=== PATIENT | female | born 1930 | race Hispanic/Latino ===

== ENCOUNTER 2017-07-13 05:38 | Day surgery (SDC) | payer MEDICARE ==
[2017-07-13] MEDS ORDERED: NACL 0.9% 1000 ML 1,000 ML IV SCH (06:00)
[2017-07-13] MEDS ORDERED: PEPCID PO NR (06:00)
[2017-07-13] MEDS ORDERED: DILAUDID IV PRN (07:07)
--- NOTE | 2017-07-13 07:07 | Anesthesia Consultation ---
Anesthesia Consult and Med Hx Date of service: 07/13/17 - Airway Anesthetic Teeth Evaluation: Good ROM Head & Neck: Adequate Mental/Hyoid Distance: Adequate Mallampati Class: Class II Intubation Access Assessment: Probably Good - Pulmonary Exam CTA: Yes - Cardiac Exam Cardiac Exam: RRR - Pre-Operative Health Status ASA Pre-Surgery Classification: ASA3 Proposed Anesthetic Plan: General - Pulmonary Hx Smoking: No Hx Sleep Apnea: No (MARIELLE PRE SCREEN LOW RISK) - Cardiovascular System Hx Hypertension: Yes (X 5 YRS) - Endocrine Hx Non-Insulin Dependent Diabetes: Yes - Other Systems Hx Cancer: No
--- NOTE | 2017-07-13 07:07 | Anesthesia Day of Surgery ---
Anesthesia Day of Surgery - Day of Surgery Patient Examined: Yes Patient H&P Reviewed: Yes Patient is NPO: Yes Beta Blockers: Yes
[2017-07-13] MEDS ORDERED: DIPRIVAN 10 MG/ML IV ONE (07:12)
[2017-07-13] MEDS ORDERED: SUBLIMAZE ONE (07:12)
[2017-07-13] MEDS ORDERED: XYLOCAINE MPF 2% ONE (07:12)
[2017-07-13] MEDS ORDERED: NORCO 5/325 PO PRN (07:30)
[2017-07-13] MEDS ORDERED: LOPRESSOR PO ONE (08:00)
[2017-07-13] MEDS ORDERED: ANCEF/STERILE WATER 2 GM/20 ML IV NR (09:00)
[2017-07-13] MEDS ORDERED: ePHEDrine SULFATE ONE (09:16)
[2017-07-13] MEDS ORDERED: ZOFRAN ONE (09:16)
--- NOTE | 2017-07-13 09:58 | Short Stay Summary ---
Short Stay Documentation Date of service: 07/13/17 - History H&P: obtained from office - Allergies and Medications Current Medications: Allergies No Known Allergies Allergy (Verified 07/06/17 16:11) Home Medications Medication Instructions Recorded Confirmed Last Taken Type Aspirin [Lo-Dose Aspirin EC] 81 mg PO DAILY 07/06/17 07/13/17 07/06/17 08:00 History Cyanocobalamin (Vitamin B-12) 2,500 mcg PO DAILY 07/06/17 07/13/17 07/12/17 08: 00 History [Vitamin B12] Ergocalciferol (Vitamin D2) 2,000 unit PO DAILY 07/06/17 07/13/17 07/12/17 08: 00 History [Vitamin D2] Acetaminophen/Codeine [Tylenol 1 tab PO Q6H PRN 07/12/17 07/12/17 Unknown History /Codeine # 3 tab] AtorvaSTATin [Lipitor] 20 mg PO QHS 07/12/17 07/13/17 07/12/17 22:00 History Ketorolac [Toradol] 10 mg PO Q6H PRN 07/12/17 07/12/17 Unknown History Lisinopril [Prinivil] 10 mg PO DAILY 07/12/17 07/13/17 07/12/17 08:00 History Metoprolol [Lopressor] 25 mg PO BID 07/12/17 07/13/17 07/12/17 08:00 History Multivit-Min/Iron/Folic/Lutein 1 tab PO DAILY 07/12/17 07/13/17 07/12/17 08:00 History [Centrum Silver Women Tablet] Sitagliptin Phosphate [Januvia] 100 mg PO DAILY 07/12/17 07/13/17 07/12/17 08: 00 History Hydrochlorothiazide 12.5 mg PO DAILY 07/13/17 07/13/17 07/12/17 08:00 History [Hydrochlorothiazide] Active Medications Cefazolin Sodium (Ancef/Sterile Water 2 Gm/20 Ml) 2 gm IV PREOP NR Stop: 07/13/17 10:00 Famotidine (Pepcid) 20 mg PO PREOP NR Stop: 07/13/17 23:59 Last Admin: 07/13/17 06:36 Dose: 20 mg Hydromorphone HCl (Dilaudid) 0.25 mg IV Q10MIN PRN PRN Reason: Pain, Moderate (4-6) Stop: 07/13/17 12:00 Sodium Chloride (Nacl 0.9% 1000 Ml) 1,000 mls @ 75 mls/hr IV DIRECT ELAINE Last Admin: 07/13/17 06:37 Dose: 75 mls/hr - Physical exam General appearance: no acute distress - Brief post op/procedure progress note Date of procedure: 07/13/17 Pre-op diagnosis: EDYTA RENAL STONES x11; RT PROX URET/upj stone Post-op diagnosis: same Procedure: rt prox uret eswl Anesthesia: GETA Findings: g vis, mod spread dec density; possible another stone migrated to upj Surgeon: NAYANA THOMPSON Estimated blood loss: minimal Pathology: none Specimen disposition: to lab Condition: stable - Hospital course Hospital course: or pacu home - Disposition Condition at discharge: Good Disposition: DC-01 TO HOME OR SELFCARE Short Stay Discharge Plan Activity: advance as tolerated Follow up with: NAYANA THOMPSON MD [Staff Physician] - 7 Days
[2017-07-13 11:12] VITALS: BP 172/69
--- NOTE | 2017-07-13 19:21 | Post Anesthesia Evaluation ---
- Post Anesthesia Evaluation Patient Participated: Yes Airway Patent: Yes Stable Respiratory Function: Yes Nausea/Vomiting: No Temp > 96.8F: Yes Pain Manageable: Yes Adequeate Hydration: Yes Anesthesia Complications: No Block Receding Appropriately: Not Applicable Patient on Ventilator: No
--- NOTE | 2017-07-14 09:00 | Operative Report ---
PREOPERATIVE DIAGNOSES: Bilateral renal stones x 11, bilateral stents, right ureteropelvic junction proximal ureter 12 mm stone, right renal large stones. POSTOPERATIVE DIAGNOSES: Bilateral renal stones x 11, bilateral stents, right ureteropelvic junction proximal ureter 12 mm stone, right renal large stones. SURGEON: Ritesh Poe M.D. ANESTHESIA: General. SPECIMENS: None. ESTIMATED BLOOD LOSS: Minimal. COMPLICATIONS: None. PROCEDURE: Right ureteral ESWL. IMPLANTS: None. COMPLICATIONS: None. ESTIMATED BLOOD LOSS: Minimal. FINDINGS: Good visualization, mild decreased density at the end of the procedure, mild decrease in density. CLINICAL INDICATIONS: Counseled RCBA, antibiotics, SCDs. The patient with bilateral ureteral obstructing stones, left side treated, then right side, had right-sided stent placed, staged for future treatment. Will need multiple surgeries, multiple treatments just on this UPJ proximal ureteral stone. It appeared in angle that will be difficult to access with percutaneous nephrolithotomy. Planned possible percutaneous nephrolithotomy in the future for the lower pole large stones, but due to the angle, it appeared it may not be able to access this. Counseled on options, elected to proceed with the shock wave lithotripsy to see if we can fragment to at least clear the ureters. DESCRIPTION OF PROCEDURE: The patient was transferred to OR suite, anesthesia, dorsal lithotomy, prepped and draped in standard fashion. The stone was targeted with an F2. A total of 2800 shocks were delivered at a maximum of 5.0 kilovolts. 5.0 kilovolts was just done for a very short duration to see if we could get some additional fragmentation at the end of the procedure. At the end of the procedure, there was mild decrease in density and did seem to be spreading out. At this point, the patient was awakened and transferred to PACU in good and stable condition. This is a staged plan, expected multiple procedures including expected likely a 2-stage ESWL to fragment the stone and staged for future stent removal. JOB# [id number] ATS/NTS
== END 2017-07-13 11:13 | disposition home or self-care (01) ==
LOC: OR 05:38
PROVIDERS: ATTEND Urology
DX: N20.2 Calculus of kidney with calculus of ureter (principal); E11.9 Type 2 diabetes mellitus without complications; E78.5 Hyperlipidemia, unspecified; I10 Essential (primary) hypertension
CPT/HCPCS: 36415; 50590; 82962; 84132; J0690; J2405; J2704; J3010; J7030

== ENCOUNTER 2017-08-10 06:52 | Day surgery (SDC) | payer MEDICARE ==
--- NOTE | 2017-08-10 07:35 | Anesthesia Day of Surgery ---
Anesthesia Day of Surgery - Day of Surgery Patient Examined: Yes Patient H&P Reviewed: Yes Patient is NPO: Yes
--- NOTE | 2017-08-10 07:35 | Anesthesia Consultation ---
Anesthesia Consult and Med Hx Date of service: 08/10/17 - Airway Anesthetic Teeth Evaluation: Good ROM Head & Neck: Adequate Mental/Hyoid Distance: Adequate Mallampati Class: Class II Intubation Access Assessment: Good - Pulmonary Exam CTA: Yes - Cardiac Exam Cardiac Exam: RRR - Pre-Operative Health Status ASA Pre-Surgery Classification: ASA3 Proposed Anesthetic Plan: General - Pulmonary Hx Smoking: No Hx Sleep Apnea: No (MARIELLE PRE SCREEN LOW RISK) - Cardiovascular System Hx Hypertension: Yes (X 5 YRS) - Endocrine Hx Non-Insulin Dependent Diabetes: Yes - Other Systems Hx Cancer: No
[2017-08-10] MEDS ORDERED: NACL 0.9% 1000 ML 1,000 ML IV SCH (08:00)
[2017-08-10] MEDS ORDERED: ANCEF/STERILE WATER 2 GM/20 ML IV NR (09:00)
[2017-08-10] MEDS ORDERED: XYLOCAINE MPF 2% ONE (09:16)
[2017-08-10] MEDS ORDERED: ZOFRAN ONE (09:16)
[2017-08-10] MEDS ORDERED: DIPRIVAN 10 MG/ML IV ONE (09:16)
[2017-08-10] MEDS ORDERED: SUBLIMAZE ONE (09:32)
[2017-08-10] MEDS ORDERED: ePHEDrine SULFATE ONE (09:37)
--- NOTE | 2017-08-10 09:58 | Short Stay Summary ---
Short Stay Documentation Date of service: 08/10/17 - History H&P: obtained from office - Allergies and Medications Current Medications: Allergies No Known Allergies Allergy (Verified 07/06/17 16:11) Home Medications Medication Instructions Recorded Confirmed Last Taken Type Aspirin [Lo-Dose Aspirin EC] 81 mg PO DAILY 07/06/17 08/04/17 07/06/17 08:00 History Cyanocobalamin (Vitamin B-12) 2,500 mcg PO DAILY 07/06/17 08/04/17 07/12/17 08: 00 History [Vitamin B12] Ergocalciferol (Vitamin D2) 2,000 unit PO DAILY 07/06/17 08/04/17 07/12/17 08: 00 History [Vitamin D2] Acetaminophen/Codeine [Tylenol 1 tab PO Q6H PRN 07/12/17 08/04/17 Unknown History /Codeine # 3 tab] AtorvaSTATin [Lipitor] 20 mg PO QHS 07/12/17 08/04/17 07/12/17 22:00 History Ketorolac [Toradol] 10 mg PO Q6H PRN 07/12/17 08/04/17 Unknown History Lisinopril [Prinivil] 10 mg PO DAILY 07/12/17 08/04/17 07/12/17 08:00 History Metoprolol [Lopressor] 25 mg PO BID 07/12/17 08/04/17 07/12/17 08:00 History Multivit-Min/Iron/Folic/Lutein 1 tab PO DAILY 07/12/17 08/04/17 07/12/17 08:00 History [Centrum Silver Women Tablet] Sitagliptin Phosphate [Januvia] 100 mg PO DAILY 07/12/17 08/04/17 07/12/17 08: 00 History Hydrochlorothiazide 12.5 mg PO DAILY 07/13/17 08/04/17 07/12/17 08:00 History [Hydrochlorothiazide] Nitrofurantoin Brown/M-Cryst 100 mg PO Q12HR #14 capsule 07/13/17 08/04/17 Unknown Rx [Macrobid CAP] Oxybutynin [Ditropan] 5 mg PO Q8HR PRN #30 tablet 07/13/17 08/04/17 Unknown Rx Active Medications Cefazolin Sodium (Ancef/Sterile Water 2 Gm/20 Ml) 2 gm IV PREOP NR Stop: 08/10/17 21:00 Sodium Chloride (Nacl 0.9% 1000 Ml) 1,000 mls @ 100 mls/hr IV DIRECT ELAINE Last Admin: 08/10/17 08:40 Dose: 100 mls/hr - Brief post op/procedure progress note Date of procedure: 08/10/17 Pre-op diagnosis: rt renal stone Post-op diagnosis: same Procedure: rt eswl----stage Anesthesia: GETA Surgeon: EFREN TAVERAS Pathology: none Condition: stable - Hospital course Hospital course: norco & post op info on chart - Disposition Condition at discharge: Stable Disposition: DC-01 TO HOME OR SELFCARE Short Stay Discharge Plan Follow up with: BRYON BELL MD [Primary Care Provider] - 7 Days
--- NOTE | 2017-08-10 10:17 | Post Anesthesia Evaluation ---
- Post Anesthesia Evaluation Patient Participated: Yes Airway Patent: Yes Stable Respiratory Function: Yes Nausea/Vomiting: No Temp > 96.8F: Yes Pain Manageable: Yes Adequeate Hydration: Yes Anesthesia Complications: No
--- NOTE | 2017-08-10 10:38 | Operative Report ---
PREOPERATIVE DIAGNOSIS: Right renal calculi, status post stent placement. POSTOPERATIVE DIAGNOSIS: Right renal calculi, status post stent placement. PROCEDURE: Extracorporal shockwave lithotripsy, staged procedure. SURGEON: Lester Shankar MD ANESTHESIA: General. ANESTHESIOLOGIST: Dr. Nicanor Duenas. ESTIMATED BLOOD LOSS: Minimal. FLUIDS: Crystalloid. COMPLICATIONS: No complications. INDICATIONS: This patient is an 86-year-old female seen by Dr. Poe in the office with a long history of stones. She has had lithotripsy in the past. She presently has an indwelling stent. She presents now for lithotripsy. DESCRIPTION OF PROCEDURE: The patient was taken to the operative suite, placed in a supine position. After adequate general anesthesia, her stone was localized in 2 planes using fluoroscopy. Approximately an 8 mm stone next to the stent, there was some peripheral fragments noted as well. Extracorporal shock wave lithotripsy was administered with a maximum kV of 5 and 2500 shocks. Adequate fragmentation could be appreciated. She tolerated the procedure well. She was extubated and taken to recovery room in stable condition. She will go home. She has a prescription for [place]. JOB# [id number] C/NTS
[2017-08-10] MEDS ORDERED: NORCO 5/325 PO PRN (11:26)
[2017-08-10] MEDS ORDERED: NORCO 5/325 ONE (11:32)
[2017-08-10 18:41] VITALS: BP 146/56
== END 2017-08-10 12:10 | disposition home or self-care (01) ==
LOC: OR 06:52
PROVIDERS: ATTEND Urology
DX: N20.0 Calculus of kidney (principal); E11.9 Type 2 diabetes mellitus without complications; I10 Essential (primary) hypertension; E78.5 Hyperlipidemia, unspecified; Z96.0 Presence of urogenital implants; Z79.82 Long term (current) use of aspirin; Z79.899 Other long term (current) drug therapy; Z98.49 Cataract extraction status, unspecified eye
CPT/HCPCS: 50590; 82962; J0690; J2405; J2704; J3010; J7030

== ENCOUNTER 2017-09-14 05:53 | Day surgery (SDC) | payer MEDICARE ==
[2017-09-14] MEDS ORDERED: NACL BACTERIOSTATIC INFILTRATI ONE (06:36)
--- NOTE | 2017-09-14 07:16 | Anesthesia Consultation ---
Anesthesia Consult and Med Hx Date of service: 09/14/17 - Airway Anesthetic Teeth Evaluation: Good ROM Head & Neck: Adequate Mental/Hyoid Distance: Adequate Mallampati Class: Class II Intubation Access Assessment: Probably Good - Pulmonary Exam CTA: Yes - Cardiac Exam Cardiac Exam: RRR - Pre-Operative Health Status ASA Pre-Surgery Classification: ASA3 Proposed Anesthetic Plan: General - Pulmonary Hx Smoking: No Hx Sleep Apnea: No (MARIELLE PRE SCREEN LOW RISK) - Cardiovascular System Hx Hypertension: Yes (X 5 YRS) - Endocrine Hx Renal Disease: Yes (kidney stones) Hx Non-Insulin Dependent Diabetes: Yes - Other Systems Hx Cancer: No
--- NOTE | 2017-09-14 07:16 | Anesthesia Day of Surgery ---
Anesthesia Day of Surgery - Day of Surgery Patient Examined: Yes Patient H&P Reviewed: Yes Patient is NPO: Yes
[2017-09-14] MEDS ORDERED: PERCOCET 5/325 PO PRN (07:17)
[2017-09-14] MEDS ORDERED: ZOFRAN IV PRN (07:17)
[2017-09-14] MEDS: NACL 0.9% 1000 ML 1,000 ML IV SCH ×2 (07:22→14:19)
[2017-09-14] MEDS ORDERED: PEPCID IV NR (08:00)
[2017-09-14] MEDS ORDERED: DIPRIVAN 10 MG/ML IV ONE (08:27)
[2017-09-14] MEDS ORDERED: SUBLIMAZE ONE (08:27)
[2017-09-14] MEDS ORDERED: ANCEF/STERILE WATER 2 GM/20 ML IV NR (09:00)
[2017-09-14] MEDS ORDERED: NEO SYNEPHRINE/NS Syringe(OR USE) IV ONE (09:40)
[2017-09-14] MEDS ORDERED: XYLOCAINE MPF 2% ONE (09:40)
[2017-09-14] MEDS ORDERED: ROBINUL ONE (09:41)
[2017-09-14] MEDS ORDERED: ZOFRAN ONE (09:42)
[2017-09-14] MEDS ORDERED: OMNIPAQUE 300 MG/50 ML (CATH LAB) IV ONE (09:54)
[2017-09-14] MEDS ORDERED: WATER FOR IRRIG STERILE IR ONE (09:54)
--- NOTE | 2017-09-14 11:35 | Short Stay Summary ---
Short Stay Documentation Date of service: 09/14/17 - History H&P: obtained from office - Allergies and Medications Current Medications: Allergies No Known Allergies Allergy (Verified 07/06/17 16:11) Home Medications Medication Instructions Recorded Confirmed Last Taken Type Aspirin [Lo-Dose Aspirin EC] 81 mg PO DAILY 07/06/17 09/14/17 09/07/17 08:00 History Cyanocobalamin (Vitamin B-12) 2,500 mcg PO DAILY 07/06/17 09/14/17 09/13/17 08: 00 History [Vitamin B12] Ergocalciferol (Vitamin D2) 2,000 unit PO DAILY 07/06/17 09/14/17 09/13/17 08: 00 History [Vitamin D2] Acetaminophen/Codeine [Tylenol 1 tab PO Q6H PRN 07/12/17 09/11/17 08/03/17 History /Codeine # 3 tab] AtorvaSTATin [Lipitor] 20 mg PO QHS 07/12/17 09/14/17 09/13/17 19:00 History Ketorolac [Toradol] 10 mg PO Q6H PRN 07/12/17 09/11/17 08/03/17 History Lisinopril [Prinivil] 10 mg PO DAILY 07/12/17 09/14/17 09/13/17 08:00 History Metoprolol [Lopressor] 25 mg PO BID 07/12/17 09/11/17 08/09/17 History Multivit-Min/Iron/Folic/Lutein 1 tab PO DAILY 07/12/17 09/14/17 09/13/17 08:00 History [Centrum Silver Women Tablet] Sitagliptin Phosphate [Januvia] 100 mg PO DAILY 07/12/17 09/14/17 09/13/17 08: 00 History Hydrochlorothiazide 12.5 mg PO PRN 07/13/17 09/14/17 07/12/17 08:00 History [Hydrochlorothiazide] Oxybutynin [Ditropan] 5 mg PO Q8HR PRN #30 tablet 07/13/17 09/11/17 Unknown Rx Active Medications Cefazolin Sodium (Ancef/Sterile Water 2 Gm/20 Ml) 2 gm IV PREOP NR Stop: 09/14/17 23:59 Famotidine (Pepcid) 20 mg IV PREOP NR Stop: 09/14/17 23:59 Last Admin: 09/14/17 07:22 Dose: 20 mg Sodium Chloride (Nacl 0.9% 1000 Ml) 1,000 mls @ 100 mls/hr IV DIRECT ELAINE Last Admin: 09/14/17 07:22 Dose: 100 mls/hr Morphine Sulfate (Morphine) 2 mg IV Q10MIN PRN PRN Reason: Pain, Moderate (4-6) Stop: 09/14/17 18:00 Ondansetron HCl (Zofran) 4 mg IV ONCE PRN PRN Reason: Nausea And Vomiting Stop: 09/14/17 18:00 Oxycodone/Acetaminophen (Percocet 5/325) 1 tab PO ONCE PRN PRN Reason: Pain, Moderate (4-6) Stop: 09/14/17 18:00 - Brief post op/procedure progress note Date of procedure: 09/14/17 Pre-op diagnosis: RT renal / uret stone Post-op diagnosis: same Procedure: right uret eswl prox/mid right URS sbe, stent sbe x30 Anesthesia: GETA Findings: extensive frags ureter including too large to pass Surgeon: NAYANA THOMPSON Estimated blood loss: minimal Pathology: none Condition: stable - Hospital course Hospital course: OR PACU home - Disposition Condition at discharge: Good Disposition: DC-01 TO HOME OR SELFCARE Short Stay Discharge Plan Activity: advance as tolerated Diet: advance as tolerated Follow up with: NAYANA THOMPSON MD [Staff Physician] - 7 Days
[2017-09-14] MEDS: MORPHINE IV PRN ×4 (11:40→13:48)
--- NOTE | 2017-09-14 12:57 | Post Anesthesia Evaluation ---
- Post Anesthesia Evaluation Patient Participated: Yes Airway Patent: Yes Stable Respiratory Function: Yes Temp > 96.8F: Yes Pain Manageable: Yes Adequeate Hydration: Yes Anesthesia Complications: No
[2017-09-14] MEDS ORDERED: MORPHINE IV PRN (13:42)
[2017-09-14] MEDS ORDERED: DITROPAN XL PO SCH ×2 (14:00→14:42)
[2017-09-14] MEDS ORDERED: PYRIDIUM PO SCH (14:00)
[2017-09-14 19:41] VITALS: BP 127/83
--- NOTE | 2017-10-13 08:34 | Operative Report ---
PREOPERATIVE DIAGNOSES: 1. Right renal extensive stones. 2. Right ureteral stone. POSTOPERATIVE DIAGNOSES: 1. Right renal extensive stones. 2. Right ureteral stone. PROCEDURE: Right ureteral ESWL, proximal mid right ureteroscopy, stone basket extraction with over 30 stones removed. This procedure was complicated. ANESTHESIA: General. FINDINGS: Extensive fragmentation of the ureter including some too large to pass, requiring laser. SURGEON: Ritesh Poe MD ESTIMATED BLOOD LOSS: Minimal. PATHOLOGY: Stones. CONDITION: Stable. IMPLANT: Stent. CLINICAL INDICATIONS: The patient counseled RCBA, antibiotics, SCDs. The patient had extensively large massive stones in the right kidney with comorbidities of her age and health, additionally had been counseled on PNL originally, URS and ESWL. She had originally an ureteral stone that was 10 mm that actually fragmented easily and well and decided to proceed with sequential fragmentations as expected and expected likely ureteroscopy given the large amount of fragmented stones that would be passing. DESCRIPTION OF PROCEDURE: The patient had antibiotics and SCDs, transferred to OR suite in supine position, the proximal stone was targeted with 2500 shocks, maximum of 4.0 kilovolts. Intermittent repositioning is necessary. There was decreased density. At this point, the patient placed in dorsal lithotomy position, prepped and draped in standard fashion. A 20-Slovak scope passed. Glidewire passed adjacent to the right stent. Stent grasped, pulled out intact. Rigid ureteroscope passed. There was just at the distal ureter, multiple fragmented stones. Triceps grasper was used to sequentially remove the stones. At this point, throughout the procedure significantly over 30 stones were removed. As we were in the distal ureter, we encountered large stones which we could not remove with triceps. Holmium laser passed, we fragmented the stones into smaller and smaller pieces and then stones were removed. We slowly went up the distal ureter, additional stones were fragmented with laser and sequentially removed with the triceps and then smaller pieces from the previous with lithos were removed with the triceps forceps. Now, we got to the proximal ureter. Fluoroscopy demonstrated almost all the stones were gone, but there may be one stone, possibly about 3 mm, just proximal, unable to access and amount of trauma procedure, it was elected the safest at this point to replace a stent and allow the area to heal and reassess. At this point, the scope was removed. Wire backloaded on the cystoscope. A 6-Slovak double-J stent was passed over the wire under direct and fluoroscopic visualization. When the wire and instrument was removed, there was nice proximal J, nice distal J within the bladder, bladder drained. The patient awakened and transferred to the PACU in good and stable condition. These are expected staged and future staged procedure. JOB# [id number] ATS/NTS
== END 2017-09-14 16:00 | disposition home or self-care (01) ==
LOC: OR 05:53
PROVIDERS: ATTEND Urology
DX: N20.2 Calculus of kidney with calculus of ureter (principal); E78.5 Hyperlipidemia, unspecified; I10 Essential (primary) hypertension; E11.9 Type 2 diabetes mellitus without complications; Z79.899 Other long term (current) drug therapy; Z79.84 Long term (current) use of oral hypoglycemic drugs
CPT/HCPCS: 36415; 50590; 52320; 52332; 82962; 84132; A4217; C2617; J0690; J2270; J2370; J2405; J2704; J3010; J7030; Q9967